=== PATIENT | female | born 1965 | race American Indian/Alaskan Native ===

== ENCOUNTER 2018-10-28 11:09 | Emergency (ER) | payer SELFPAY ==
[2018-10-28] MEDS ORDERED: CATAPRES PO ONE (13:26)
--- NOTE | 2018-10-28 13:36 | Emergency Department Report ---
ED General Adult HPI - General Chief complaint: Upper Respiratory Infection Stated complaint: FLU LIKE/(R) HAND PAIN Time Seen by Provider: 10/28/18 13:25 Source: patient Mode of arrival: Ambulatory Limitations: No Limitations - History of Present Illness Initial comments: Patient is 53 years old female with history of hypertension. Patient presented to the ER complaining of cough for the last 3 months. Patient denied any shortness of breath, chest pain, fever, nausea or vomiting. Patient stated that cough is mainly at night. Patient is taking losartan for hypertension. Patient also denied any headache, weakness numbness or tingling sensation. - Related Data Home Medications Medication Instructions Recorded Confirmed Last Taken cloNIDine [Catapres] 1 tab PO DAILY 10/04/15 10/04/15 10/04/15 05:00 Previous Rx's Medication Instructions Recorded Last Taken Type Aspirin [Aspirin BABY CHEW TAB] 81 mg PO QDAY #30 tab.chew 10/10/15 Unknown Rx Doxazosin [Cardura] 2 mg PO QHS #30 tablet 10/10/15 Unknown Rx Losartan [Cozaar] 100 mg PO QDAY #30 tablet 10/10/15 Unknown Rx Metoprolol [Lopressor TAB] 50 mg PO BID #60 tablet 10/10/15 Unknown Rx amLODIPine [Norvasc] 10 mg PO QDAY #30 tablet 10/10/15 Unknown Rx Allergies Allergy/AdvReac Type Severity Reaction Status Date / Time No Known Allergies Allergy Unverified 10/04/15 17:47 ED Review of Systems ROS: Stated complaint: FLU LIKE/(R) HAND PAIN Other details as noted in HPI Comment: All other systems reviewed and negative Constitutional: denies: chills, fever Respiratory: cough. denies: orthopnea, shortness of breath, SOB with exertion, SOB at rest Gastrointestinal: denies: abdominal pain, nausea, vomiting, diarrhea, constipa tion, hematemesis, melena, hematochezia Musculoskeletal: denies: back pain Neurological: denies: headache, weakness, numbness, paresthesias, confusion, abnormal gait ED Past Medical Hx - Past Medical History Hx Hypertension: Yes Hx Congestive Heart Failure: No Hx Diabetes: No Hx Asthma: No Hx COPD: No - Surgical History Past Surgical History?: No - Social History Smoking Status: Never Smoker Substance Use Type: None - Medications Home Medications: Home Medications Medication Instructions Recorded Confirmed Last Taken Type cloNIDine [Catapres] 1 tab PO DAILY 10/04/15 10/04/15 10/04/15 05:00 History Aspirin [Aspirin BABY CHEW TAB] 81 mg PO QDAY #30 tab.chew 10/10/15 Unknown Rx Doxazosin [Cardura] 2 mg PO QHS #30 tablet 10/10/15 Unknown Rx Losartan [Cozaar] 100 mg PO QDAY #30 tablet 10/10/15 Unknown Rx Metoprolol [Lopressor TAB] 50 mg PO BID #60 tablet 10/10/15 Unknown Rx amLODIPine [Norvasc] 10 mg PO QDAY #30 tablet 10/10/15 Unknown Rx ED Physical Exam - General Limitations: No Limitations General appearance: alert, in no apparent distress - Head Head exam: Present: atraumatic, normocephalic, normal inspection - Eye Eye exam: Present: normal appearance - ENT ENT exam: Present: normal exam, normal orophraynx, mucous membranes moist - Neck Neck exam: Present: normal inspection, full ROM. Absent: tenderness, meningismus, lymphadenopathy, thyromegaly - Respiratory Respiratory exam: Present: normal lung sounds bilaterally. Absent: respiratory distress, wheezes, rales, rhonchi, accessory muscle use, decreased breath sounds, prolonged expiratory - Cardiovascular Cardiovascular Exam: Present: regular rate, normal rhythm, normal heart sounds - GI/Abdominal GI/Abdominal exam: Present: soft, normal bowel sounds. Absent: distended, tenderness, guarding, rebound, rigid, organomegaly, mass, bruit, pulsatile mass, hernia - Extremities Exam Extremities exam: Present: normal inspection, full ROM, normal capillary refill. Absent: tenderness, pedal edema, joint swelling, calf tenderness - Back Exam Back exam: Present: normal inspection, full ROM. Absent: tenderness, CVA tenderness (R), CVA tenderness (L), muscle spasm, paraspinal tenderness, verte bral tenderness - Neurological Exam Neurological exam: Present: alert, oriented X3, CN II-XII intact, normal gait, reflexes normal - Skin Skin exam: Present: warm, intact, normal color ED Course Vital Signs 10/28/18 11:19 Temperature 97.7 F Pulse Rate 97 H Respiratory 18 Rate Blood Pressure 180/121 O2 Sat by Pulse 97 Oximetry ED Medical Decision Making - Medical Decision Making Patient is 53 years old female with history of hypertension. Patient presented to the ER complaining of cough for the last 3 months. Patient denied any shortness of breath, chest pain, fever, nausea or vomiting. Patient stated that cough is mainly at night. Patient is taking losartan for hypertension. Patient also denied any headache, weakness numbness or tingling sensation. I believe the patient chronic cough is most likely a side effect of losartan. I advised the patient to discontinue losartan and I replaced her medication with hydralazine. I advised the patient to follow up with her primary care physician in the next 2-3 days and to return to the ER if her symptoms are not improved. Critical care attestation.: If time is entered above; I have spent that time in minutes in the direct care of this critically ill patient, excluding procedure time. ED Disposition Clinical Impression: Cough, Malignant hypertension Disposition: DC- TO HOME OR SELFCARE Is pt being admited?: No Condition: Stable Instructions: Hypertension (ED), Chronic Cough (ED) Referrals: PRIMARY CARE, [Primary Care Provider] - 3-5 Days
[2018-10-28 14:35] VITALS: BP 148/100
== END 2018-10-28 14:35 | disposition home or self-care (01) ==
LOC: ED 11:09
DX: I10 Essential (primary) hypertension (principal); R05 Cough
CPT/HCPCS: 99282

== ENCOUNTER 2018-11-18 10:32 | Emergency (ER) | payer SELFPAY ==
[2018-11-18] MEDS ORDERED: TESSALON PERLES PO ONE (13:22)
--- NOTE | 2018-11-18 14:00 | XRay Report ---
ROUTINE CHEST, TWO VIEWS: Cough PA and lateral views demonstrate the heart and mediastinal contour to be of normal size and shape. The lungs are clear and fully expanded and the soft tissues and bony structures are normal. IMPRESSION: Normal study.
--- NOTE | 2018-11-18 14:24 | Emergency Department Report ---
- General Chief Complaint: Upper Respiratory Infection Stated Complaint: COUGHING/SNEEZING/EYES WATERY Time Seen by Provider: 11/18/18 13:17 Source: patient Mode of arrival: Ambulatory Limitations: No Limitations - History of Present Illness Initial Comments: This is a 53-year-old female nontoxic, well nourished in appearance, no acute signs of distress presents to the ED with c/o of dry nonproductive cough, rhinorrhea, nasal congestion x1 week. Patient denies any sick contact. Patient denies any recent travels, long car, recent hospital stays. Patient denies any calf pain or calf tenderness. Patient denies any chest pain, short of breath, fever, chills, nausea, vomiting, hemoptysis, numbness, tingling, headache or stiff neck. Denies any allergies with PMH of HTN. MD Complaint: cough, rhinorrhea, nasal congestion -: week(s) (1) Consistency: constant Improves With: nothing Worsens With: nothing Associated Symptoms: rhinorrhea, nasal congestion, cough. denies: fever, chills, myalgias, diaphoresis, headache, sore throat, stiff neck, chest pain, shortness of breath, abdominal pain, nausea, vomiting, diarrhea, dysuria, rash, confusion, right sweats, weight loss, epistaxis, hoarseness, ear pain Treatments Prior to Arrival: none - Related Data Home Medications Medication Instructions Recorded Confirmed Last Taken cloNIDine [Catapres] 1 tab PO DAILY 10/04/15 10/04/15 10/04/15 05:00 Previous Rx's Medication Instructions Recorded Last Taken Type Aspirin [Aspirin BABY CHEW TAB] 81 mg PO QDAY #30 tab.chew 10/10/15 Unknown Rx Doxazosin [Cardura] 2 mg PO QHS #30 tablet 10/10/15 Unknown Rx Losartan [Cozaar] 100 mg PO QDAY #30 tablet 10/10/15 Unknown Rx Metoprolol [Lopressor TAB] 50 mg PO BID #60 tablet 10/10/15 Unknown Rx amLODIPine [Norvasc] 10 mg PO QDAY #30 tablet 10/10/15 Unknown Rx hydrALAZINE [Apresoline TAB] 25 mg PO Q8HR #90 tab 10/28/18 Unknown Rx Benzonatate [Tessalon Perle] 100 mg PO Q8H PRN #20 capsule 11/18/18 Unknown Rx Prednisone [predniSONE 10 mg 10 mg PO .TAPER #1 tab.ds.pk 11/18/18 Unknown Rx (6-Day Pack, 21 Tabs)] Allergies Allergy/AdvReac Type Severity Reaction Status Date / Time No Known Allergies Allergy Verified 11/18/18 11:03 ED Review of Systems ROS: Stated complaint: COUGHING/SNEEZING/EYES WATERY Other details as noted in HPI Constitutional: denies: chills, fever Eyes: denies: eye pain, eye discharge, vision change ENT: congestion. denies: ear pain, throat pain Respiratory: cough. denies: shortness of breath, wheezing Cardiovascular: denies: chest pain, palpitations Endocrine: no symptoms reported Gastrointestinal: denies: abdominal pain, nausea, diarrhea Genitourinary: denies: urgency, dysuria, discharge Musculoskeletal: denies: back pain, joint swelling, arthralgia Skin: denies: rash, lesions Neurological: denies: headache, weakness, paresthesias Psychiatric: denies: anxiety, depression Hematological/Lymphatic: denies: easy bleeding, easy bruising ED Past Medical Hx - Past Medical History Previous Medical History?: Yes Hx Hypertension: Yes Hx Congestive Heart Failure: No Hx Diabetes: No Hx Asthma: No Hx COPD: No - Surgical History Past Surgical History?: No - Social History Smoking Status: Never Smoker - Medications Home Medications: Home Medications Medication Instructions Recorded Confirmed Last Taken Type cloNIDine [Catapres] 1 tab PO DAILY 10/04/15 10/04/15 10/04/15 05:00 History Aspirin [Aspirin BABY CHEW TAB] 81 mg PO QDAY #30 tab.chew 10/10/15 Unknown Rx Doxazosin [Cardura] 2 mg PO QHS #30 tablet 10/10/15 Unknown Rx Losartan [Cozaar] 100 mg PO QDAY #30 tablet 10/10/15 Unknown Rx Metoprolol [Lopressor TAB] 50 mg PO BID #60 tablet 10/10/15 Unknown Rx amLODIPine [Norvasc] 10 mg PO QDAY #30 tablet 10/10/15 Unknown Rx hydrALAZINE [Apresoline TAB] 25 mg PO Q8HR #90 tab 10/28/18 Unknown Rx Benzonatate [Tessalon Perle] 100 mg PO Q8H PRN #20 capsule 11/18/18 Unknown Rx Prednisone [predniSONE 10 mg 10 mg PO .TAPER #1 tab.ds.pk 11/18/18 Unknown Rx (6-Day Pack, 21 Tabs)] ED Physical Exam - General Limitations: No Limitations General appearance: alert, in no apparent distress - Head Head exam: Present: atraumatic, normocephalic - Eye Eye exam: Present: normal appearance - ENT ENT exam: Present: normal exam, normal orophraynx - Neck Neck exam: Present: normal inspection, full ROM. Absent: tenderness, meningismus, lymphadenopathy - Respiratory Respiratory exam: Present: normal lung sounds bilaterally. Absent: respiratory distress, wheezes, rales, rhonchi, stridor, chest wall tenderness, accessory muscle use, decreased breath sounds, prolonged expiratory - Cardiovascular Cardiovascular Exam: Present: regular rate, normal rhythm, normal heart sounds. Absent: bradycardia, tachycardia, irregular rhythm, systolic murmur, diastolic murmur, rubs, gallop - Extremities Exam Extremities exam: Present: normal inspection, full ROM - Back Exam Back exam: Present: normal inspection, full ROM - Neurological Exam Neurological exam: Present: alert, oriented X3 - Psychiatric Psychiatric exam: Present: normal affect, normal mood - Skin Skin exam: Present: warm, dry, intact, normal color. Absent: rash ED Course Vital Signs 11/18/18 11:03 Temperature 98 F Pulse Rate 82 Respiratory 16 Rate Blood Pressure 155/108 O2 Sat by Pulse 100 Oximetry - Reevaluation(s) Reevaluation #1: 11/18/18 14:21 Patient is speaking in full sentences with no signs of distress noted. ED Medical Decision Making - Medical Decision Making This is a 53-year-old female that presents with bronchitis. Patient is stable and was examined by me. Chest x-ray has been obtained and dictated by radiologist with normal exam. Patient is notified of x-ray results with no questions noted. Patient was instructed to increase hydration, rest and take Motrin for fever episodes. Patient received motrin in the ED. Vitals stable. Patient is nonfebrile and normal heart rate. Patient was instructed Follow-up with a primary care doctor in 3-5 days or if symptoms worsen and continue return to emergency room as soon as possible. At time time of discharge, the patient does not seem toxic or ill in appearance. No acute signs of distress noted. Patient agrees to discharge treatment plan of care. No further questions noted by the patient. Critical care attestation.: If time is entered above; I have spent that time in minutes in the direct care of this critically ill patient, excluding procedure time. ED Disposition Clinical Impression: Acute bronchitis Disposition: TO HOME OR SELFCARE Is pt being admited?: No Does the pt Need Aspirin: No Condition: Stable Instructions: Acute Bronchitis (ED) Additional Instructions: Follow-up with a primary care doctor in 3-5 days or if symptoms worsen and continue return to emergency room as soon as possible. Prescriptions: Benzonatate [Tessalon Perle] 100 mg PO Q8H PRN #20 capsule PRN Reason: Cough Prednisone [predniSONE 10 mg (6-Day Pack, 21 Tabs)] 10 mg PO .TAPER #1 tab.ds.pk Referrals: PRIMARY CAREMD [Referring] - 3-5 Days TANJA MARIA MD [Staff Physician] - 3-5 Days [facility] [Outside] - 3-5 Days [facility] [Outside] - 3-5 Days Forms: Work/School Release Form(ED)
[2018-11-18 14:44] VITALS: BP 166/119
== END 2018-11-18 14:43 | disposition home or self-care (01) ==
LOC: ED 10:32
DX: J20.9 Acute bronchitis, unspecified (principal); I10 Essential (primary) hypertension; Z79.82 Long term (current) use of aspirin
CPT/HCPCS: 71046; 99283

== ENCOUNTER 2020-08-16 09:30 | Emergency (ER) | payer OTHER ==
[2020-08-16 09:48] VITALS: BP 165/118
--- NOTE | 2020-08-16 10:59 | Emergency Department Report ---
ED Extremity Problem HPI - General Chief complaint: Extremity Problem,Nontraumatic Stated complaint: FOOT SWOLLEN Time Seen by Provider: 08/16/20 10:25 Source: patient Mode of arrival: Ambulatory Limitations: No Limitations - History of Present Illness Initial comments: 55-year-old female presents to ED with pain to left great toe x2 days. Patient denies any history of gout. She denies any fever. Patient states it is uncomfortable to bear weight or wear her shoe. She denies any trauma. MD Complaint: joint paint -: days(s) (2) Location: left, toe (great) History of Same: No -: No fever Radiation: none Quality: aching Consistency: constant Improves with: immobilization Worsens with: weight bearing, walking, palpation Associated Symptoms: denies: fever - Related Data Home Medications Medication Instructions Recorded Confirmed Last Taken cloNIDine [Catapres] 1 tab PO DAILY 10/04/15 10/04/15 10/04/15 05:00 Previous Rx's Medication Instructions Recorded Last Taken Type Aspirin [Aspirin BABY CHEW TAB] 81 mg PO QDAY #30 tab.chew 10/10/15 Unknown Rx Doxazosin [Cardura] 2 mg PO QHS #30 tablet 10/10/15 Unknown Rx Losartan [Cozaar] 100 mg PO QDAY #30 tablet 10/10/15 Unknown Rx Metoprolol [Lopressor TAB] 50 mg PO BID #60 tablet 10/10/15 Unknown Rx amLODIPine 10 mg PO QDAY #30 tablet 10/10/15 Unknown Rx hydrALAZINE [Apresoline TAB] 25 mg PO Q8HR #90 tab 10/28/18 Unknown Rx Benzonatate [Tessalon Perle] 100 mg PO Q8H PRN #20 capsule 11/18/18 Unknown Rx Prednisone [predniSONE 10 mg 10 mg PO .TAPER #1 tab.ds.pk 11/18/18 Unknown Rx (6-Day Pack, 21 Tabs)] Colchicine 0.6 mg PO Q1HR #3 capsule 08/16/20 Unknown Rx Indomethacin 50 mg PO Q8H #15 capsule 08/16/20 Unknown Rx predniSONE [Deltasone] 50 mg PO QDAY #5 tab 08/16/20 Unknown Rx Allergies Allergy/AdvReac Type Severity Reaction Status Date / Time No Known Allergies Allergy Verified 11/18/18 11:03 ED Review of Systems ROS: Stated complaint: FOOT SWOLLEN Other details as noted in HPI Comment: All other systems reviewed and negative Constitutional: denies: fever Musculoskeletal: joint swelling, arthralgia ED Past Medical Hx - Past Medical History Previous Medical History?: Yes Hx Hypertension: Yes Hx Congestive Heart Failure: No Hx Diabetes: No Hx Asthma: No Hx COPD: No - Social History Smoking Status: Never Smoker Substance Use Type: None - Medications Home Medications: Home Medications Medication Instructions Recorded Confirmed Last Taken Type cloNIDine [Catapres] 1 tab PO DAILY 10/04/15 10/04/15 10/04/15 05:00 History Aspirin [Aspirin BABY CHEW TAB] 81 mg PO QDAY #30 tab.chew 10/10/15 Unknown Rx Doxazosin [Cardura] 2 mg PO QHS #30 tablet 10/10/15 Unknown Rx Losartan [Cozaar] 100 mg PO QDAY #30 tablet 10/10/15 Unknown Rx Metoprolol [Lopressor TAB] 50 mg PO BID #60 tablet 10/10/15 Unknown Rx amLODIPine 10 mg PO QDAY #30 tablet 10/10/15 Unknown Rx hydrALAZINE [Apresoline TAB] 25 mg PO Q8HR #90 tab 10/28/18 Unknown Rx Benzonatate [Tessalon Perle] 100 mg PO Q8H PRN #20 capsule 11/18/18 Unknown Rx Prednisone [predniSONE 10 mg 10 mg PO .TAPER #1 tab.ds.pk 11/18/18 Unknown Rx (6-Day Pack, 21 Tabs)] Colchicine 0.6 mg PO Q1HR #3 capsule 08/16/20 Unknown Rx Indomethacin 50 mg PO Q8H #15 capsule 08/16/20 Unknown Rx predniSONE [Deltasone] 50 mg PO QDAY #5 tab 08/16/20 Unknown Rx ED Physical Exam - General Limitations: No Limitations General appearance: alert, in no apparent distress - Head Head exam: Present: atraumatic, normocephalic - Eye Eye exam: Present: normal appearance, EOMI - ENT ENT exam: Present: mucous membranes moist - Neck Neck exam: Present: normal inspection - Respiratory Respiratory exam: Absent: respiratory distress - Cardiovascular Cardiovascular Exam: Present: regular rate, normal rhythm - GI/Abdominal GI/Abdominal exam: Absent: distended - Extremities Exam Extremities exam: Present: other (Tenderness, slight swelling to first MTP joint on the left foot; no erythema present) - Neurological Exam Neurological exam: Present: alert, oriented X3. Absent: motor sensory deficit - Psychiatric Psychiatric exam: Present: normal affect, normal mood - Skin Skin exam: Present: warm, dry, intact, normal color ED Course Vital Signs 08/16/20 09:48 Temperature 97.7 F Pulse Rate 81 Respiratory 16 Rate Blood Pressure 165/118 [Right] O2 Sat by Pulse 100 Oximetry Critical care attestation.: If time is entered above; I have spent that time in minutes in the direct care of this critically ill patient, excluding procedure time. ED Disposition Clinical Impression: Gout attack Disposition: - TO HOME OR SELFCARE Is pt being admited?: No Condition: Stable Instructions: Acute Gouty Arthritis (ED) Prescriptions: Colchicine 0.6 mg PO Q1HR #3 capsule predniSONE [Deltasone] 50 mg PO QDAY #5 tab Indomethacin 50 mg PO Q8H #15 capsule Referrals: [facility] [Provider Group] - 3-5 Days PRIMARY CARE, [Primary Care Provider] - 3-5 Days Time of Disposition: 11:00
== END 2020-08-16 11:20 | disposition home or self-care (01) ==
LOC: ED 09:30
DX: M10.9 Gout, unspecified (principal); I10 Essential (primary) hypertension; Z79.899 Other long term (current) drug therapy
CPT/HCPCS: 99282

== ENCOUNTER 2021-07-03 10:12 | Emergency (ER) | payer SELFPAY ==
[2021-07-03 10:46] VITALS: BP 142/94
--- NOTE | 2021-07-03 11:25 | XRay Report ---
Left foot-3 views INDICATION: left great toe pain. COMPARISON: None. IMPRESSION: No acute osseous abnormality. Normal alignment. 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 Soft tissues are otherwise unremarkable. Signer Name: Stuart Contreras MD Signed: 07/03/2021 11:20 AM Workstation Name: [id number]
[2021-07-03] MEDS ORDERED: HYDROcodone/ACETAMINOPHEN 10-325MG TAB PO ONE (11:52)
--- NOTE | 2021-07-03 11:58 | Emergency Department Report ---
ED Lower Extremity HPI - General Chief Complaint: Extremity Injury, Lower Stated Complaint: LT FOOT SWOLLEN PAIN Time Seen by Provider: 07/03/21 10:47 Source: patient Mode of arrival: Ambulatory Limitations: No Limitations - History of Present Illness Initial Comments: This is a 56-year-old female nontoxic, well nourished in appearance, no acute signs of distress presents to the ED with c/o of left great toe pain and swelling times several days. Patient stated has history of gout and symptoms are similar. Patient otherwise denies any trauma or injuries. Patient denies any numbness, tingling, fever, chills, nausea, vomiting, chest pain, shortness of breath, headache, stiff neck. Patient denies any joint swelling or joint redness. Patient denies decreased range of motion. Patient stated has decreased gait due to pain. Patient denies any allergies. MD Complaint: other (right great toe) -: days(s) Injury: Toes: Left Place: home Severity: mild Severity scale (0 -10): 3 Improves With: immobilization Worsens With: weight bearing, movement, palpation Associated Symptoms: swelling, able to partially bear weight. denies: snap/pop sensation, numbness, tingling, unable to bear weight - Related Data Home Medications Medication Instructions Recorded Confirmed Last Taken cloNIDine [Catapres] 1 tab PO DAILY 10/04/15 10/04/15 10/04/15 05:00 Previous Rx's Medication Instructions Recorded Last Taken Type Aspirin [Aspirin BABY CHEW TAB] 81 mg PO QDAY #30 tab.chew 10/10/15 Unknown Rx Doxazosin [Cardura] 2 mg PO QHS #30 tablet 10/10/15 Unknown Rx Losartan [Cozaar] 100 mg PO QDAY #30 tablet 10/10/15 Unknown Rx Metoprolol [Lopressor TAB] 50 mg PO BID #60 tablet 10/10/15 Unknown Rx amLODIPine 10 mg PO QDAY #30 tablet 10/10/15 Unknown Rx hydrALAZINE [Apresoline TAB] 25 mg PO Q8HR #90 tab 10/28/18 Unknown Rx Benzonatate [Tessalon Perle] 100 mg PO Q8H PRN #20 capsule 11/18/18 Unknown Rx Prednisone [predniSONE 10 mg 10 mg PO .TAPER #1 tab.ds.pk 11/18/18 Unknown Rx (6-Day Pack, 21 Tabs)] Colchicine 0.6 mg PO Q1HR #3 capsule 08/16/20 Unknown Rx Indomethacin 50 mg PO Q8H #15 capsule 08/16/20 Unknown Rx predniSONE [Deltasone] 50 mg PO QDAY #5 tab 08/16/20 Unknown Rx Colchicine [Colcrys] 0.6 mg PO ONCE #2 tab 07/03/21 Unknown Rx Naproxen 500 mg PO Q12H PRN #12 tablet 07/03/21 Unknown Rx Prednisone [predniSONE 10 mg 10 mg PO .TAPER #1 tab.ds.pk 07/03/21 Unknown Rx (6-Day Pack, 21 Tabs)] Allergies Allergy/AdvReac Type Severity Reaction Status Date / Time No Known Allergies Allergy Verified 11/18/18 11:03 ED Review of Systems ROS: Stated complaint: LT FOOT SWOLLEN PAIN Other details as noted in HPI Comment: All other systems reviewed and negative Constitutional: denies: chills, fever Eyes: denies: eye pain, eye discharge, vision change ENT: denies: ear pain, throat pain Respiratory: denies: cough, shortness of breath, wheezing Cardiovascular: denies: chest pain, palpitations Endocrine: no symptoms reported Gastrointestinal: denies: abdominal pain, nausea, diarrhea Genitourinary: denies: urgency, dysuria, discharge Musculoskeletal: denies: back pain, joint swelling, arthralgia Skin: denies: rash, lesions Neurological: denies: headache, weakness, paresthesias Psychiatric: denies: anxiety, depression Hematological/Lymphatic: denies: easy bleeding, easy bruising ED Past Medical Hx - Past Medical History Hx Hypertension: Yes Hx Congestive Heart Failure: No Hx Diabetes: No Hx Asthma: No Hx COPD: No - Social History Smoking Status: Never Smoker Substance Use Type: None - Medications Home Medications: Home Medications Medication Instructions Recorded Confirmed Last Taken Type cloNIDine [Catapres] 1 tab PO DAILY 10/04/15 10/04/15 10/04/15 05:00 History Aspirin [Aspirin BABY CHEW TAB] 81 mg PO QDAY #30 tab.chew 10/10/15 Unknown Rx Doxazosin [Cardura] 2 mg PO QHS #30 tablet 10/10/15 Unknown Rx Losartan [Cozaar] 100 mg PO QDAY #30 tablet 10/10/15 Unknown Rx Metoprolol [Lopressor TAB] 50 mg PO BID #60 tablet 10/10/15 Unknown Rx amLODIPine 10 mg PO QDAY #30 tablet 10/10/15 Unknown Rx hydrALAZINE [Apresoline TAB] 25 mg PO Q8HR #90 tab 10/28/18 Unknown Rx Benzonatate [Tessalon Perle] 100 mg PO Q8H PRN #20 capsule 11/18/18 Unknown Rx Prednisone [predniSONE 10 mg 10 mg PO .TAPER #1 tab.ds.pk 11/18/18 Unknown Rx (6-Day Pack, 21 Tabs)] Colchicine 0.6 mg PO Q1HR #3 capsule 08/16/20 Unknown Rx Indomethacin 50 mg PO Q8H #15 capsule 08/16/20 Unknown Rx predniSONE [Deltasone] 50 mg PO QDAY #5 tab 08/16/20 Unknown Rx Colchicine [Colcrys] 0.6 mg PO ONCE #2 tab 07/03/21 Unknown Rx Naproxen 500 mg PO Q12H PRN #12 tablet 07/03/21 Unknown Rx Prednisone [predniSONE 10 mg 10 mg PO .TAPER #1 tab.ds.pk 07/03/21 Unknown Rx (6-Day Pack, 21 Tabs)] ED Physical Exam - General Limitations: No Limitations General appearance: alert, in no apparent distress - Head Head exam: Present: atraumatic, normocephalic - Eye Eye exam: Present: normal appearance - Neck Neck exam: Present: normal inspection, full ROM. Absent: lymphadenopathy - Respiratory Respiratory exam: Absent: respiratory distress - Cardiovascular Cardiovascular Exam: Present: regular rate - Extremities Exam Extremities exam: Present: normal inspection, full ROM, tenderness, normal capillary refill. Absent: pedal edema, joint swelling, calf tenderness - Expanded Lower Extremity Exam Left Hip exam: Present: normal inspection, full ROM. Absent: tenderness, swelling Upper Leg exam: Present: normal inspection, full ROM. Absent: tenderness, swelling Knee exam: Present: normal inspection, full ROM. Absent: tenderness, swelling Lower Leg exam: Present: normal inspection, full ROM. Absent: tenderness, swe lling Ankle exam: Present: normal inspection, full ROM. Absent: tenderness, swelling Foot/Toe exam: Present: normal inspection, full ROM, tenderness, swelling. Absent: abrasion, laceration, ecchymosis, deformity, crepidus, dislocation, erythema, amputation, puncture wound, calcaneal tenderness, tenderness at base of 5th metatarsal, nail avulsion, subungual hematoma Neuro vascular tendon exam: Present: no vascular compromise Gait: Positive: observed and limited by pain 1 - pain and swelling here with no signs of abscess or cellulitis on exam. - Back Exam Back exam: Present: normal inspection, full ROM - Neurological Exam Neurological exam: Present: alert, oriented X3 - Psychiatric Psychiatric exam: Present: normal affect, normal mood - Skin Skin exam: Present: warm, dry, intact, normal color. Absent: rash ED Course Vital Signs 07/03/21 10:45 Temperature 98.4 F Pulse Rate 80 Respiratory 18 Rate Blood Pressure 142/94 O2 Sat by Pulse 100 Oximetry - Reevaluation(s) Reevaluation #1: 07/03/21 11:58 Patient is speaking in full sentences with no signs of distress noted. ED Lower Extremity MDM - Lab Data Lab Results 07/03/21 Range/Units 11:27 Uric Acid 8.6 H (3.5-7.6) mg/dL - Radiology Data [facility] [address] [place] [address] XRay Report Signed Patient: ENEIDA CONWAY MR#: [id number] 35 : 1965 Acct:[id number] Age/Sex: 56 / F ADM Date: 07/03/21 Loc: ED Attending Dr: Ordering Physician: JEREL HARTMAN NP Date of Service: 07/03/21 Procedure(s): XR foot 3+V LT Accession Number(s): [id number] cc: JEREL HARTMAN NP Fluoro Time In Minutes: Left foot-3 views INDICATION: left great toe pain. COMPARISON: None. IMPRESSION: No acute osseous abnormality. Normal alignment. 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 Soft tissues are otherwise unremarkable. Signer Name: Stuart Contreras MD Signed: 07/03/2021 11:20 AM Workstation Name: [id number] Transcribed By: ABDOUL Dictated By: Stuart Contreras MD Electronically Authenticated By: Stuart Contreras MD Signed Date/Time: 07/03/211119 DD/ 19 TD/TT: - Medical Decision Making 56-year-old female that presents with gout. Patient is stable and was examined by me. Patient received [place], colchicine and Decadron. Patient be discharged with colchicine and naproxen. Patient stated family will drive the patient home after discharge due to possible drowsiness from [place]. patient is notified of the imaging results and the lab results with no questions noted by the patient. Physical exam otherwise does not show any cellulitis or abscess. Vital signs are stable prior to discharge. Patient was instructed to follow-up with a primary care doctor in 3-5 days or if symptoms worsen and continue return to emergency room as soon as possible. At time of discharge, the patient does not seem toxic or ill in appearance. No acute signs of distress noted. Patient agrees to discharge treatment plan of care. No further questions noted by the patient. Critical care attestation.: If time is entered above; I have spent that time in minutes in the direct care of this critically ill patient, excluding procedure time. ED Disposition Clinical Impression: Gouty arthritis of left great toe Disposition: HOME / SELF CARE / HOMELESS Is pt being admited?: No Does the pt Need Aspirin: No Condition: Stable Instructions: Low-Purine Eating Plan Additional Instructions: Follow-up with a primary care doctor in 3-5 days or if symptoms worsen and continue return to emergency room as soon as possible. Prescriptions: Colchicine [Colcrys] 0.6 mg PO ONCE #2 tab Naproxen 500 mg PO Q12H PRN #12 tablet PRN Reason: Pain , Severe (7-10) Prednisone [predniSONE 10 mg (6-Day Pack, 21 Tabs)] 10 mg PO .TAPER #1 tab.ds.pk Referrals: PRIMARY CAREMD [Referring] - 3-5 Days ADELAIDA DANIELS MD [Staff Physician] - 3-5 Days Time of Disposition: 12:37
[2021-07-03] MEDS ORDERED: dexAMETHasone 20 MG/5 ML VIAL IM ONE (12:33)
[2021-07-03] MEDS ORDERED: COLCHICINE 0.6 MG TAB PO NR (13:00)
== END 2021-07-03 12:46 | disposition home or self-care (01) ==
LOC: ED 10:12
DX: M10.9 Gout, unspecified (principal); M79.675 Pain in left toe(s); I10 Essential (primary) hypertension; Z79.82 Long term (current) use of aspirin; Z79.899 Other long term (current) drug therapy
CPT/HCPCS: 36415; 84550; 99283